=== PATIENT | male | born 1935 | race Caucasian/White ===

== ENCOUNTER 2016-11-20 14:37 | Inpatient (IN) | payer MEDICARE ==
[~2016-11-20] VITALS: Ht 170.2 cm; Wt 55.5 kg
[~2016-11-20 14:37] MED LIST: CALMOSEPTINE OI71 GM TOPICAL; CARAFATE1 G PO; CARAFATE1 G/10 ML PO; COLACE100 MG PO; EMLA CREAM 30 G30 G1 TOPICAL; FLOMAX0.4 MG PO; HYDROCODONE-APA1 TAB PO; LANOXIN125 MCG PO; LOPRESSOR25 MG PO; MED FOR HTN; MIRALAX17 GM PO; PROAIR HFA8.5 GM INH; PROTONIX I40 MG/VIAL PO; PROTONIX40 MG PO; REGLAN INJ10 MG/2 ML PO; REGLAN5 MG PO; ULTRACET TABLET1 TAB PO; ULTRAM50 MG PO; ZOFRAN4 MG PO
[2016-11-20 16:29] LABS: BASOPHILS 0.7 % (0.0-2.0); EOSINOPHILS 4.4 % (0-7); HEMATOCRIT 36.8 % (42.0-54.0); HEMOGLOBIN 11.6 g/dL (13.5-17.5); IMMATURE GRANULOCYTES 0.2 % (0-5); MCH 31.6 pg (26.0-34.0); MCHC 31.5 g/dL (31.0-37.0); MCV 100.3 fL (80.0-100.0); MEAN PLATELET VOLUME 9.3 fL (7.4-10.4); MONOCYTES 8.8 % (2-11); NEUTROPHILS 70.9 % (40-80); PLATELET COUNT 108 10x3/uL (130-400); RBC 3.67 10x6/uL (4.20-6.10); RDW 15.4 % (11.5-14.5); WBC 5.7 10x3/uL (4.8-10.8)
[2016-11-20 17:01] LABS: ALKALINE PHOSPHATASE 130 U/L (46-116); ALT (SGPT) 16 U/L (10-68); CALC OSMOLALITY 284 mosm/kg (275-300); CARBON DIOXIDE 30.3 mmol/L (21.0-32.0); CHLORIDE - SERUM 100 mmol/L (98-107); CREATININE - SERUM 2.8 mg/dL (0.6-1.3); GLUCOSE 99 mg/dL (74-106); POTASSIUM - SERUM 3.4 mmol/L (3.5-5.1); SODIUM 141 mmol/L (136-145); UREA NITROGEN 24 mg/dL (7-18); eGFR NON AFRICAN AMERICAN 23 mL/min (90-120)
[2016-11-20 17:17] LABS: CHOL - HDL RATIO 2.5 ratio (2.3-4.9); CHOLESTEROL, TOTAL 103 mg/dL (0-200); CKMB 6.3 U/L (0.0-3.6); CREATINE KINASE 34 UL (21-232); HDL CHOLESTEROL 42 mg/dL (32-96); LDL CHOLESTEROL 41 mg/dL (0-100); TRIGLYCERIDE 102 mg/dL (30-200); TROPONIN-I 0.042 ng/mL (0.000-0.060)
--- NOTE | 2016-11-20 19:35 | NUR ---
RECEIVED TO ROOM 2101, ALERT AND ORIENTED 80 Y/O MALE SEEN BY DR BHATT WITH DX OF LUNG CONSOLATION, VIA W/C FROM ER. ORIENTATION TO UNIT, ROOM, C/L, TV, PHONE, BATHROOM, URINAL GIVEN WITH UNDERSTANDING VERBALIZED. IV ANTIBIOTIC HUNG VIA PUMP TO LEFT FA IV WITH NO R/S NOTED AT SITE. RT ARM FISTULA WITH + BRUIT AND THRILL NOTED. SANDWICH GIVEN PER REQUEST. TELEMETRY PLACED PER ORDERS. SHOWING 106 UNCAFIB AT THIS TIME. SITTING UP ON SIDE OF BED EATING. VOICES NO C/O PAIN OR DISCOMFORT. C/L IN REACH. CONTINUE TO MONITOR.
[2016-11-20 20:00] VITALS: BP 175/99
[2016-11-20] MEDS ORDERED: TEMAZEPAM30 MG PO (23:50)
[2016-11-21] VITALS (7 sets, daily range): BP systolic 142–193; BP diastolic 63–99; Ht 170.2 cm; Wt 55.5 kg
--- NOTE | 2016-11-21 01:19 | NUR ---
SITTING UP ON SIDE OF BED, STATES, i DONT NEED ANYTHING". TOD BED ALARM ON AND WORKING, NONSKID SOCKS IN PLACE, C/L IN REACH. CONTINUE TO MONITOR,
--- NOTE | 2016-11-21 07:32 | NUR ---
AM ROUNDING DONE, SITTING ON SIDE OF BED LEANING TO RIGHT. STATES THAT HE IS COMFORTABLE THIS WAY. ON 3L PER NC. ON HEART MONITOR SHOWING UCAF, HR 104. SALINE LOCK SEEN TO LEFT ARM, RIGHT AVF. ON TOD ALARM. NON SKID SOCKS SEEN ON FEET. WILL CONTINUE TO MONITOR.
--- NOTE | 2016-11-21 11:55 | NUR ---
BILATERAL SCD'S ON ORDERED.
--- NOTE | 2016-11-21 12:24 | NUR ---
EVENS (SON) TO CALL AND ASK ABOUT HIS FATHER. PER PATIENT OKAY, WAS ABLE TO GIVE HIM INFORMATION.
--- NOTE | 2016-11-21 14:50 | NUR ---
1446-CALL PLACED TO RICHELLE HERNANDEZ TO SEE ABOUT CONTINUING HOME MEDICATIONS. AWAITING CALL BACK.
--- NOTE | 2016-11-21 17:24 | NUR ---
Patient Name: TOMMY SOLIS Admission Status: ER Accout number: [id number] Admission Date: 11-20-2016 : 1935 Admission Diagnosis: Attending: CRISTOPHER Current LOS: 1 Anticipated DC Date: Planned Disposition: Home with Home Health Primary Insurance: [employer] CHOICE PPO MCR ADVANT Discharge Planning Comments: * Is the patient Alert and Oriented? Yes 0 * How many steps to enter\exit or inside your home? 6 0 * PCP DR. GOODSON 0 * Pharmacy [facility] 0 * Preadmission Environment Home with Family 0 * ADLs Independent 0 * Equipment Oxygen Walker 0 * Other Equipment HOME OXYGEN ONLY UNKNOWN MEDICAL EQUIPMENT PROVIDER 0 * List name and contact numbers for known caregivers / representatives who currently or will assist patient after discharge: EVENS SOLIS, SON, 0 * Community resources currently utilized Home Health, OTHER 0 * Please name any agencies selected above. UNKNOWN PROVIDER, PT REPORTS [facility] AT ADMISSION BUT CANNOT REMEMBER THE NAME OF HIS COMPANY 0 OUTPATIENT DIALYSIS, [facility], M//, 1130, DAUGH[employer] IN [employer]. * Additional services required to return to the preadmission environment? No 0 * Can the patient safely return to the preadmission environment? Yes 0 * Has this patient been hospitalized within the prior 30 days at any hospital? No 0 CM MET WITH PT IN ROOM TO DISCUSS DISCHARGE PLANNING AND NEEDS. PT REPORTS LIVING AT HOME INDEPENDENTLY WITH HIS ADULT SON. PT HAS A WALKER AND HOME OXYGEN, PT CANNOT REMEMBER THE NAME OF HIS PROVIDER. PT REPORTS HAVING HOME HEALTH PRIOR TO ADMISSON BUT CANNOT REMEMBER THE NAME OF HIS COMPANY. PT REPORTS GOING TO [facility] ON M// SCHEDULE AT 1130AM, HIS DAUGHTER IN LAW TAKES HIM. CM DISCUSSED AVAILABILITY OF HOME HEALTH, REHAB SERVICES AND MEDICAL EQUIPMENT. PT REPORTS HE WENT TO [facility] FOR REHAB THE LAST TIME HE MET CM FOR REHAB AND IS NOT GOING BACK TO ANY REHAB. PT DENIES NEED OF MEDICAL EQUIPMENT OR REHAB SERVICES, REPORTS PLAN TO GO BACK HOME WITH HIS SON WHO WILL PICK HIM UP AT DISCHARGE. PT WANTS HIS HOME HEALTH RESUMED BUT CANNOT REMEMBER THE NAME OF THE HOME HEALTH COMPANY. CM TO ATTEMPT TO SPEAK TO PT'S FAMILY AND LOCATE PT'S HOME HEALTH COMPANY PRIOR TO DISCHARGE. [employer] Crew Pusher: Sampson Liu
[2016-11-21 17:37] LABS: ALBUMIN 3.1 g/dL (3.4-5.0); BILIRUBIN - DIRECT 0.15 mg/dL (0.00-0.30); BILIRUBIN - INDIRECT 0.16 mg/dL (0.00-1.00); BILIRUBIN - TOTAL 0.31 mg/dL (0.2-1.3); PROTEIN - SERUM 7.1 g/dL (6.4-8.2)
[2016-11-22] VITALS: BP 159/60
--- NOTE | 2016-11-22 03:56 | NUR ---
IN BED WITH EYES CLOSED, RESP UNLAB O2 AT 3L NC IN PLACE, TELEMETRY IN PLACE SHOWING HR UNCAFIB. WHEEZES NOTED TO LEFT SIDE OF CHEST, NOT WEARING SCDS AT THIS TIME. BUT IS WEARING NONSKID SOCKS FOR SAFETY. TOD BED ALARM IS ON AND WORKEING FOR SAFETY. RT AVF WITH + BRUIT AND THRILL NOTED. LEFT FA SL INTACT WITH NO R/S NOTED AT SITE. CONTINUE TO MONITOR.
[2016-11-22 04:00] VITALS: BP 160/84
[2016-11-22 05:36] LABS: BASOPHILS 0.2 % (0.0-2.0); EOSINOPHILS 0.4 % (0-7); IMMATURE GRANULOCYTES 0.2 % (0-5); LYMPHOCYTES 9.6 % (15-50); MCH 31.7 pg (26.0-34.0); MCHC 31.4 g/dL (31.0-37.0); MCV 100.9 fL (80.0-100.0); MEAN PLATELET VOLUME 9.8 fL (7.4-10.4); MONOCYTES 6.2 % (2-11); NEUTROPHILS 83.4 % (40-80); PLATELET COUNT 127 10x3/uL (130-400); RBC 3.47 10x6/uL (4.20-6.10); RDW 15.7 % (11.5-14.5)
[2016-11-22 05:41] LABS: APTT 36.6 SECONDS (22.8-39.4); INR 1.04 (0.85-1.17); PROTIME 13.5 SECONDS (11.6-15.0)
[2016-11-22 05:45] LABS: ANION GAP 13.9 mmol/L (8-16); CALCIUM 8.4 mg/dL (8.5-10.1); CARBON DIOXIDE 28.4 mmol/L (21.0-32.0); POTASSIUM - SERUM 3.3 mmol/L (3.5-5.1)
[2016-11-22 05:55] LABS: D-DIMER-QUANTITATIVE 4.84 ug/mLFEU (0.20-0.54)
--- NOTE | 2016-11-22 06:56 | NUR ---
0650-MADE NPO FOR PROCEDURE TODAY, CALLED AND SPOKE TO EVENS (SON).
[2016-11-22 08:32] VITALS: BP 173/90
[2016-11-22 13:41] VITALS: BP 162/85
--- NOTE | 2016-11-22 16:25 | NUR ---
1600-TO DIALYSIS VIA WHEELCHAIR AND PORTABLE OXYGEN.
[2016-11-22 17:04] VITALS: BP 188/113
--- NOTE | 2016-11-22 17:53 | NUR ---
RETURNS FROM DIALYSIS. WILL MONITOR.
--- NOTE | 2016-11-22 19:34 | NUR ---
Received patient sitting up at edge of bed, slightly SOB, Oxygen on @3L/min, SCDs off at this time, Levaquin infusing in PIV in left forearm, states he had dialysis today, two 2"x2" gauze dressings with paper tape over right arm fistula clean, dry and intact with no drainage, denies pain at this time, alert and oriented x 4, ekg monitor on, rhythm remains Uncontrolled A-Fib. [place] bed alarm on. Still ambivalent regarding having CT biopsy and wants more time before signing consents for anesthesia and procedure.
[2016-11-22 21:17] VITALS: BP 184/90
--- NOTE | 2016-11-22 22:30 | NUR ---
Refusing to rest in bed, insisting on lying perpendicular with his feet up on a chair beside his bed. Argumentative and irritable. Bed alarm is on.
[2016-11-23 01:21] VITALS: BP 136/79
--- NOTE | 2016-11-23 01:30 | NUR ---
Resting quietly in bed with eyes closed, respirations easy and regular, deemed to be sleeping at this time.
--- NOTE | 2016-11-23 03:35 | NUR ---
Patient's bed alarm going off. HEPATOLOGIST found patient at edge of bed, confused, irritated, had pulled out his PIV (had been SL after receiving IVPB antibiotic) and was in process of pulling all his school lunch monitor leads off. Telemetry leads reattached, assisted back into bed. Patient did not remember pulling out PIV. Asked staff why they had pulled out his PIV. Complaining of something being wrong with his brain, "I think those medications that doctor is giving me is making my head funny."
[2016-11-23 04:00] VITALS: BP 184/98
[2016-11-23 06:04] LABS: BASOPHILS 0 % (0.0-2.0); EOSINOPHILS 0 % (0-7); HEMATOCRIT 37.3 % (42.0-54.0); HEMOGLOBIN 11.6 g/dL (13.5-17.5); IMMATURE GRANULOCYTES 0.3 % (0-5); LYMPHOCYTES 3.5 % (15-50); MCH 31.3 pg (26.0-34.0); MCHC 31.1 g/dL (31.0-37.0); MCV 100.5 fL (80.0-100.0); MONOCYTES 2.2 % (2-11); PLATELET COUNT 133 10x3/uL (130-400); RBC 3.71 10x6/uL (4.20-6.10); RDW 15.8 % (11.5-14.5); WBC 10.8 10x3/uL (4.8-10.8)
[2016-11-23 06:21] LABS: ANION GAP 13.4 mmol/L (8-16); CALCIUM 8.8 mg/dL (8.5-10.1); CARBON DIOXIDE 29.6 mmol/L (21.0-32.0); CREATININE - SERUM 3.7 mg/dL (0.6-1.3)
--- NOTE | 2016-11-23 08:00 | NUR ---
0716-PERMITS SIGNED FOR PROCEDURE TODAY. NPO. NO IV ACCESS. JAIRO HYDE RN TO SITE LEFT FA WITH 22G. ON 3L PER NC, WHEEZES HEARD TO RIGHT SIDE. ON HEART MONITOR SHOWING UCAF, HR 111. PATIENT IS SLIGHTLY CONFUSED THIS AM BUT RECONIZES MYSELF AND LOUIE UPTON. HE KNOWS THAT THIS IS NOVEMBER AND 2016. RIGHT ARM IS SWOLLEN FROM DIALYSIS YESTERDAY, RIGHT AVF, + BRUIT AND THRILL. TOD ALARM IS IN USE. WILL CONTINUE TO MONITOR
[2016-11-23 08:45] VITALS: BP 167/102
--- NOTE | 2016-11-23 10:19 | NUR ---
TO IR VIA BED.
--- NOTE | 2016-11-23 10:46 | NUR ---
1045-RETURNS FROM IR WITH DRESSING SEEN TO RIGHT UPPER BACK CHEST, DRY AND INTACT. DENIES PAIN AT PRESENT TIME. WILL CONTINUE TO MONITOR.
[2016-11-23 12:38] VITALS: BP 149/68
[2016-11-23 13:42] LABS: PROTEIN - BODY FLUID 3.1 G/DL
[2016-11-23 14:06] LABS: LYMPH - BF 90 %; MACROPHAGES BF 3 %; NEUT - BF 7 %
[2016-11-23 16:07] VITALS: BP 136/80
[2016-11-23 20:00] VITALS: BP 132/61
[2016-11-24] VITALS: BP 139/77
[2016-11-24 04:00] VITALS: BP 155/78
[2016-11-24 05:42] LABS: BASOPHILS 0 % (0.0-2.0); EOSINOPHILS 0 % (0-7); IMMATURE GRANULOCYTES 0.2 % (0-5); LYMPHOCYTES 2.6 % (15-50); MCH 31.3 pg (26.0-34.0); MCHC 31.4 g/dL (31.0-37.0); MCV 99.4 fL (80.0-100.0); MEAN PLATELET VOLUME 9.8 fL (7.4-10.4); NEUTROPHILS 94.2 % (40-80); PLATELET COUNT 135 10x3/uL (130-400); RBC 3.52 10x6/uL (4.20-6.10); RDW 15.8 % (11.5-14.5); WBC 11.4 10x3/uL (4.8-10.8)
[2016-11-24 05:49] LABS: ANION GAP 14.7 mmol/L (8-16); CALCIUM 8.6 mg/dL (8.5-10.1); CARBON DIOXIDE 26.5 mmol/L (21.0-32.0); CREATININE - SERUM 4.8 mg/dL (0.6-1.3); POTASSIUM - SERUM 4.2 mmol/L (3.5-5.1)
--- NOTE | 2016-11-24 06:44 | NUR ---
PT SLEPT INTERMITTENTLY LAST NIGHT. PT ATE SNACKS 3 DIFFERENT TIMES DURING NIGHT. WILL CONTINUE TO MONITOR.
[2016-11-24 08:56] VITALS: BP 136/75
--- NOTE | 2016-11-24 09:52 | NUR ---
Nutrition follow-up: Diet: mechanical soft with thin liquids PO intake ~50-75% of meals; pt has been NPO for procedure 11/23/16 Labs reviewed Wt: 121# Will continue to encourage increased po intake. RDN following.
[2016-11-24 13:26] VITALS: BP 138/63
--- NOTE | 2016-11-24 13:57 | NUR ---
PT IN BED FROM DIALYSIS. ALERT AND TAlkATIVE.
--- NOTE | 2016-11-24 14:55 | NUR ---
O2 SAT 65% ON 1L O2 PER NC. DR ALICIA NOTIFIED AND NEW ORDERS RECEIVED. PT TALKING TO VISITOR AND NO DISTRESS NOTED.
[2016-11-24 17:41] VITALS: BP 114/65
[2016-11-24 18:09] LABS: ACID FAST SMEAR Negative (()); AFB SPECIMEN PROCESSING Concentration (())
[2016-11-24 20:00] VITALS: BP 131/62
--- NOTE | 2016-11-24 22:09 | NUR ---
PT AWAKE, ALERT, ORIENTED, DENIES ANY NEEDS, TALKING ABOUT HIS NEW DX OF LUNG CANCER. GAVE RX WITH APPLESAUCE R/T PT C/O CAPSULES GETTING STUCK IN THE ROOF OF HIS MOUTH. PT DID WELL WITH THE APPLESAUCE, NO DIFFICULTY. WILL CONTINUE TO MONITOR CLOSELY. BED LOW, CALL LIGHT IN REACH, SIDE RAILS X 2, HOB 20 DEGREES. PT DID GIVE HIMSELF A BED BATH TONIGHT.
[2016-11-25 04:00] VITALS: BP 104/51
[2016-11-25 05:25] LABS: BASOPHILS 0 % (0.0-2.0); EOSINOPHILS 0 % (0-7); HEMATOCRIT 35.7 % (42.0-54.0); IMMATURE GRANULOCYTES 0.1 % (0-5); LYMPHOCYTES 3.1 % (15-50); MCHC 30.8 g/dL (31.0-37.0); MCV 100.6 fL (80.0-100.0); MEAN PLATELET VOLUME 9.6 fL (7.4-10.4); MONOCYTES 2.6 % (2-11); NEUTROPHILS 94.2 % (40-80); PLATELET COUNT 110 10x3/uL (130-400); RBC 3.55 10x6/uL (4.20-6.10); RDW 15.8 % (11.5-14.5)
[2016-11-25 05:26] LABS: WBC 8.4 10x3/uL (4.8-10.8)
[2016-11-25 05:39] LABS: ANION GAP 10.8 mmol/L (8-16); CALCIUM 8.1 mg/dL (8.5-10.1); CARBON DIOXIDE 31.9 mmol/L (21.0-32.0); POTASSIUM - SERUM 4.7 mmol/L (3.5-5.1)
[2016-11-25 05:40] LABS: CREATININE - SERUM 3.2 mg/dL (0.6-1.3)
--- NOTE | 2016-11-25 07:00 | NUR ---
RECEIVED REPORT. ASSUMED CARE OF PATIENT. CALL LIGHT WITHIN REACH. DENIES NEEDS OTHER THAN WANTING TO GET UP AND TAKE A SHOWER. RESP EVEN AND UNLABORED. PATIENT STATES HE IS WAITING FOR THE CANCER DOCTOR TO COME AND SEE HIM. NO DISTRESS.
[2016-11-25 09:04] VITALS: BP 130/67
--- NOTE | 2016-11-25 11:46 | NUR ---
SPOKE TO FOR CLARIFICATION OF WHICH TEST SHE WANTS ORDERED DUE TO PATIENT CANNOT HAVE MRI WITH CONTRAST BUT PER NEPHROLOGY CAN HAVE CT WITH CONTRAST. GAVE ORDERS AT THIS TIME FOR CT OF HEAD WITH CONTRAST, DX LUNG CANCER. ORDER PLACED.
[2016-11-25 12:12] VITALS: BP 112/51
--- NOTE | 2016-11-25 15:46 | NUR ---
ASSISTED PATIENT OOB TO CHAIR AT BEDSIDE. COMPLETE LINEN CHANGE PROVIDED. ASSISTED PATIENT BACK TO BED. CALL LIGHT WITHIN REACH. ALL PERSONAL ITEMS WITHIN REACH. NO DISTRESS. DENIES NEEDS AT THIS TIME.
[2016-11-25 16:25] VITALS: BP 125/62
[2016-11-25 20:19] VITALS: BP 133/67
--- NOTE | 2016-11-26 | NUR ---
OUT IN HALLWAY, HAVE TAKEN OFF TELEMETRY OFF AND IV UN HOOKED. CARRYING BAG FROM ROOM. SAYING THAT HE NEEDS TO BURN THIS BUILDING DOWN FOR 1000.00$. REFUSING TO CALM DOWN. SON "EVENS" CALLED, TALK WITH DAD DID NOT GO WELL, PHONE WAS THROWN DOWN ON DESK. WALKING AWAY FROM DESK AWAY FROM ROOM. TURN AROUND WITH ASSIST OF STAFF, HEADING TO OWN ROOM AND BED. IN BED WITH ASSIST, REFUSING TO WEAR O2 AND TELEMETRY AT THIS TIME. IV RECONNECTED TO PUMP. HOB UP SR UP X2, C/L IN REACH. AWAITING SON"S ARRIVAL.
[2016-11-26 00:37] VITALS: BP 124/63
--- NOTE | 2016-11-26 01:20 | NUR ---
SON AND DAUGHTER IN LAW HERE, ATTEMPTING TO CALM AND REORIENT. CONTINUES TO REFUSE TO WEAR TELEMETRY, O2 @ 3L NC IS IN PLACE AT THIS TIME. CONTINUES TO SAY HE IS GOING TO BURN THIS BUILDING DOWN AND MAKE 1000.00$..THAT HE OWNED IT AND THE PAPERS HAD BEEN SIGNED. CONTINUE TO MONITOR.
[2016-11-26 04:23] VITALS: BP 139/67
[2016-11-26 05:09] LABS: BASOPHILS 0 % (0.0-2.0); EOSINOPHILS 0 % (0-7); HEMATOCRIT 35.2 % (42.0-54.0); IMMATURE GRANULOCYTES 0.2 % (0-5); LYMPHOCYTES 3.4 % (15-50); MCH 31.2 pg (26.0-34.0); MCHC 31.3 g/dL (31.0-37.0); MCV 99.7 fL (80.0-100.0); MEAN PLATELET VOLUME 9.6 fL (7.4-10.4); MONOCYTES 3.6 % (2-11); NEUTROPHILS 92.8 % (40-80); PLATELET COUNT 123 10x3/uL (130-400); RBC 3.53 10x6/uL (4.20-6.10); RDW 15.9 % (11.5-14.5)
[2016-11-26 05:41] LABS: ANION GAP 14.9 mmol/L (8-16); CALCIUM 8.2 mg/dL (8.5-10.1); POTASSIUM - SERUM 4.9 mmol/L (3.5-5.1)
[2016-11-26 05:57] LABS: CREATININE - SERUM 4.2 mg/dL (0.6-1.3)
--- NOTE | 2016-11-26 07:00 | NUR ---
RECEIVED REPORT. ASSUMED CARE OF PATIENT. CALL PATIENT WITH EYES CLOSED, LYING ON RIGHT LATERAL SIDE. RESP EVEN AND UNLABORED. RECEIVED IN REPORT THAT PATIENT WAS UP MOST OF THE NIGHT AND VERY DELUSIONAL. NO ACUTE DISTRESS NOTED. PATIENT IS CURRENTLY NPO FOR CT WITH CONTRAST THIS AM. NO FAMILY AT BEDSIDE AT THIS TIME.
[2016-11-26 09:00] VITALS: BP 148/67
--- NOTE | 2016-11-26 09:26 | NUR ---
RESTING IN BED WITH EYES CLOSED. RESP EVEN AND UNLABORED. AWAITING FOR CT TO RETRIEVE PATIENT FOR SCAN THIS AM.
--- NOTE | 2016-11-26 10:10 | NUR ---
22 GAUGE PLACED TO ANTERIOR UPPER FOREARM X 1 STICK. GOOD BLOOD RETURN, EASY FLUSH. TAPED, DATED AND SECURED. PATTIENT TOLERATED IV PLACEMENT WELL. PATIENT STATES HE PULLED HIS OTHER IV OUT BECAUSE HE DIDN'T THINK THAT WE NEEDED IT. NO IV SITE FOUND DURING AM ASSESSMENT, NO BLEEDING TO SITE THAT IV WAS CURRENTLY STATED TO BE PLACED. NO DISTRESS.
--- NOTE | 2016-11-26 10:30 | NUR ---
PATIENT LEFT UNIT VIA WHEELCHAIR FOR MRI FO LUMBAR SPINE AND WILL RECEIVE CT OF HEAD WHILE DOWNSTAIRS AFTER MRI IS COMPLETED. NO DISTRESS LEAVING UNIT.
--- NOTE | 2016-11-26 10:50 | NUR ---
SPECIALTY MATTRESS DISCUSSED WITH NURSE PRACTITIONER AND AN EGG CRATE WILL BE PLACED ON PATIENT BED. CHARGE NURSE NOTIFIED TRIAGE CLINICIAN OF THE NEED FOR EGG CRATE.
--- NOTE | 2016-11-26 11:45 | NUR ---
PATIENT RETURNED TO ROOM VIA WHEELCHAIR FROM CT SCAN. NO DISTRESS. RESP EVEN AND UNLABORED. PATIENT READY TO CONSUME NOON MEAL. CALL LIGHT PLACED WITHIN REACH. NO DISTRESS.
[2016-11-26 11:50] VITALS: BP 144/79
--- NOTE | 2016-11-26 15:00 | NUR ---
RESTING IN BED WITH EYES CLOSED. RESP EVEN AND UNLABORED. EASILY AROUSED. NO DISTRESS. DENIES NEEDS.
[2016-11-26 16:00] VITALS: BP 128/60
--- NOTE | 2016-11-26 17:45 | NUR ---
GLUING MACHINE OPERATOR MADE AWARE OF WANTING 1ST STEP OVERLAY UNDER PATIENT INSTEAD OF EGG CRATE MATTRESS.
--- NOTE | 2016-11-26 18:06 | NUR ---
SITTING TO SIDE OF BED. MALE VISITOR AT BEDSIDE. NO DISTRESS. CALL LIGHT WITHIN REACH.
--- NOTE | 2016-11-26 19:30 | NUR ---
ASSESSMENT COMPLETE, SEE FLOW SHEET, DENIES NEEDS AT THIS TIME. O2 @ 3L NC IN USE, RT AVF WITH + BRUIT AND THRILL NOTED. LEFT ARM IV WITH NO R/S NOTED AT SITE. WILL BE PLACING HIM ON FIRST STEP MATTRESS PER ORDERS. CONTINUE TO MONITOR.
[2016-11-26 20:00] VITALS: BP 140/63
[2016-11-27] VITALS: BP 144/89
--- NOTE | 2016-11-27 02:43 | NUR ---
ON FIRST STEP MATTRESS. CONFUSION NOTED. ATT EMPT UNSUCCESSFUL TO REORIENT AT THIS TIME, CONTINUING TO MONITOR. C/L IN REACH.
[2016-11-27 04:00] VITALS: BP 125/71
[2016-11-27 05:43] LABS: BASOPHILS 0.1 % (0.0-2.0); EOSINOPHILS 0.1 % (0-7); HEMATOCRIT 34.5 % (42.0-54.0); HEMOGLOBIN 11.4 g/dL (13.5-17.5); IMMATURE GRANULOCYTES 0.3 % (0-5); LYMPHOCYTES 5.4 % (15-50); MCH 32.9 pg (26.0-34.0); MCV 99.4 fL (80.0-100.0); MEAN PLATELET VOLUME 9.8 fL (7.4-10.4); MONOCYTES 7.4 % (2-11); NEUTROPHILS 86.7 % (40-80); PLATELET COUNT 129 10x3/uL (130-400); RBC 3.47 10x6/uL (4.20-6.10); RDW 15.9 % (11.5-14.5); WBC 12.3 10x3/uL (4.8-10.8)
[2016-11-27 06:05] LABS: ANION GAP 13.6 mmol/L (8-16); CALCIUM 8.2 mg/dL (8.5-10.1); CARBON DIOXIDE 27.3 mmol/L (21.0-32.0); CREATININE - SERUM 4.7 mg/dL (0.6-1.3); POTASSIUM - SERUM 4.9 mmol/L (3.5-5.1)
--- NOTE | 2016-11-27 07:56 | NUR ---
0710-AM ROUNDING DONE WITH PATIENT APPEARING TO BE ASLEEP. RESP ARE EVEN AND NON LABORED. ON TOD ALARM. ON 3L PER NC. SALINE LOCK SEEN TO LEFT FA, RIGHT AVF. ON 1ST STEP OVERLAY MATTRESS. WILL COTNINUE TO MONITOR.
[2016-11-27 08:00] VITALS: BP 137/62
--- NOTE | 2016-11-27 10:33 | NUR ---
2 X 2 AND OPSITE SEEN TO RIGHT UPPER POSTERIOR BACK, DRY AND INTACT. 1036-CALLED TO ROOM SON STATES THAT HE THINKS HIS DAD IS CHOKING. PATIENT REPORTS THAT HE "CAN'T BREATH". MOVING AIR AND TALKING TO ME. O2 SAT IS 95 % ON 3L. INCREASED TO 4L. BREAKFAST TRAY TAKEN AWAY. WILL CONTINUE TO MONITOR.
--- NOTE | 2016-11-27 11:19 | NUR ---
1116- PT TAKEN TO DIALYSIS VIA WHEELCHAIR.
[2016-11-27 13:13] LABS: FUNGUS STAIN Final report (())
--- NOTE | 2016-11-27 15:15 | NUR ---
IN AND OUT CATH UA SENT TO LAB ORDERED.
[2016-11-27 15:59] LABS: APPEARANCE SLT CLOUDY (CLEAR); BACTERIA FEW /hpf (NONE SEEN); BILIRUBIN NEGATIVE (NEGATIVE); COLOR DK YELLOW (YELLOW); EPITHELIAL CELLS 0-5 /hpf (0-5); GLUCOSE NEGATIVE (NEGATIVE); KETONE NEGATIVE (NEGATIVE); LEUKOCYTE ESTERASE TRACE (NEGATIVE); NITRITE NEGATIVE (NEGATIVE); PROTEIN 1+ mg/dL (NEGATIVE); RED CELLS - URINE 25-50 /hpf (0-5); SPECIFIC GRAVITY 1.015 (1.005-1.020); UROBILINOGEN NORMAL (NORMAL); WHITE CELLS - URINE 0-5 /hpf (0-5)
[2016-11-27 16:00] VITALS: BP 135/56
[2016-11-27 21:40] VITALS: BP 135/53
--- NOTE | 2016-11-27 22:03 | NUR ---
PT AWAKE, ALERT, ORIENTED, DEMONSTRATING INCREASED SOB NONEXERTIONAL. PT STATES HIS BACK IS HURTING WELL. PT DID TAKE HIS MEDICATIONS WITH APPLESAUCE. PT STATES HE DID NOT TOLERATE DIALYSIS WELL TODAY R/T THE CHAIR HE WAS SITTING IN. PT STATES IT HURT HIS BACK TO THE POINT HE COULD NOT TOLERATE STAYING IN IT. DENIES ANY OTHER NEEDS. CONTINUE TO MONITOR CLOSELY. BED LOW, CALL LIGHT IN REACH, SIDE RAILS X 2, HOB 20 DEGREES.
[2016-11-28 02:00] VITALS: BP 120/66
[2016-11-28 04:21] LABS: BASOPHILS 0 % (0.0-2.0); EOSINOPHILS 1.9 % (0-7); HEMATOCRIT 35.8 % (42.0-54.0); HEMOGLOBIN 10.7 g/dL (13.5-17.5); IMMATURE GRANULOCYTES 0.5 % (0-5); LYMPHOCYTES 11.9 % (15-50); MCH 30.6 pg (26.0-34.0); MCHC 29.9 g/dL (31.0-37.0); MEAN PLATELET VOLUME 9.4 fL (7.4-10.4); MONOCYTES 10.9 % (2-11); NEUTROPHILS 74.8 % (40-80); PLATELET COUNT 134 10x3/uL (130-400)
[2016-11-28 04:47] LABS: ANION GAP 11.5 mmol/L (8-16); CALCIUM 7.9 mg/dL (8.5-10.1); CREATININE - SERUM 4.2 mg/dL (0.6-1.3); POTASSIUM - SERUM 4.5 mmol/L (3.5-5.1)
[2016-11-28 04:49] LABS: MCV 102.3 fL (80.0-100.0); WBC 8.6 10x3/uL (4.8-10.8)
--- NOTE | 2016-11-28 06:41 | NUR ---
PT WAS RESTLESS DURING THE NIGHT, MOST OF IT DURING HIS SLEEP. PT STATES HE IS READY TO , STATING THAT HIS SITUATION IS HOPELESS. PT DENIES DOING ANY SELF HARM, JUST THAT HE DOES NOT SEE HIMSELF IMPROVING WITH HIS HEALTH. DENIES ANY NEEDS. CONTINUE TO MONITOR CLOSELY.
--- NOTE | 2016-11-28 07:49 | NUR ---
0740-AM ROUNDING DONE, SON EVENS AT BEDSIDE STATING THAT HE IS LEAVING FOR [place] AGAIN THIS AM. PATIENT IS ON 3L PER NC, LEFT FA SEEN WTIH SALINE LOCK. RIGHT AVF WITH + BRUIT AND THRILL, RIGHT ARM IS SWOLLEN (ALMOST DOUBLE THAN LEFT). ON 1ST STEP OVERLAY MATTRESS. TRAPEZE BAR SEEN IN USE. TOD ALARM IN USE. WILL CONTINUE TO MONITOR.
[2016-11-28 08:19] VITALS: BP 129/69
--- NOTE | 2016-11-28 08:33 | NUR ---
ASSISTED TO CHAIR WITH TOD ALARM.
[2016-11-28 12:05] VITALS: BP 128/57
--- NOTE | 2016-11-28 14:53 | NUR ---
Nutrition follow-up: Diet: Renal PO intake ~50% of meals - pt with breathing issues Scheduled for kyphoplasty 11/29 +BM Wt: 122# Pt with poor po intake at this time RDN will order nutritional supplement post-surgery to increase kcal/protein intake. RDN following.
[2016-11-28 16:04] VITALS: BP 147/71
--- NOTE | 2016-11-28 17:37 | NUR ---
PATIENT HAS TAKEN O2 OFF AGAIN. REPLACED ON TO HIM. O2 SAT TO 95%. PATIENT IS VERY DEPRESSED AND STATES THAT HE WANTS TO BE WITH HIS (). ENCOURGED HIM TO LEAVE THE O2 ON TO HELP WITH HIS BREATHING. TOLD HIM THAT THE LORD IS NOT READY FOR HIM YET AND ENCOURGED HIM TO LEAVE THE O2 ON. WILL CONTINUE TO MONITOR.
--- NOTE | 2016-11-28 19:20 | NUR ---
ENCORAGED PATIENT TO LEAVE HIS O2 ON SO HE CAN BREATH. TALKED WITH PATIENT AND LISTENED TO HIM REGARDING HIS AND HIS SON (GENE) WHO IS TRAVELING FROM [place]. DENIES ANY NEEDS AT PRESENT TIME. WILL CONTINUE TO MONITOR.
[2016-11-28 20:00] VITALS: BP 158/80
--- NOTE | 2016-11-28 22:30 | NUR ---
RESTING IN BED ON RIGHT SIDE. DENIES ANY PAIN OR NEEDS. SEE ASSESSMENT FLOW SHEET FOR DETAILS. REPOSITIONED IN BED FOR COMFORT.
--- NOTE | 2016-11-28 23:00 | NUR ---
SON, EVENS CALLED TO CHECK ON HIS DAD.
[2016-11-29] VITALS: BP 134/79
[2016-11-29 04:00] VITALS: BP 121/54
[2016-11-29 05:34] LABS: BASOPHILS 0.1 % (0.0-2.0); EOSINOPHILS 0.1 % (0-7); HEMATOCRIT 34.7 % (42.0-54.0); HEMOGLOBIN 10.8 g/dL (13.5-17.5); IMMATURE GRANULOCYTES 0.6 % (0-5); LYMPHOCYTES 4.2 % (15-50); MCH 31.5 pg (26.0-34.0); MCHC 31.1 g/dL (31.0-37.0); MCV 101.2 fL (80.0-100.0); MEAN PLATELET VOLUME 9.8 fL (7.4-10.4); MONOCYTES 6.7 % (2-11); NEUTROPHILS 88.3 % (40-80); PLATELET COUNT 128 10x3/uL (130-400); RBC 3.43 10x6/uL (4.20-6.10); RDW 15.7 % (11.5-14.5); WBC 10.6 10x3/uL (4.8-10.8)
[2016-11-29 05:57] LABS: ANION GAP 14.5 mmol/L (8-16); CALCIUM 7.9 mg/dL (8.5-10.1); CARBON DIOXIDE 29.9 mmol/L (21.0-32.0); CREATININE - SERUM 4.8 mg/dL (0.6-1.3); POTASSIUM - SERUM 5.4 mmol/L (3.5-5.1)
--- NOTE | 2016-11-29 07:20 | NUR ---
PT RESTING COMFORTABLY. NO SS OF DISTRESS AT THIS TIME. WILL CONTINUE TO MONITOR.
--- NOTE | 2016-11-29 07:50 | NUR ---
PATIENT VERY CONFUSED, COMBATIVE. HAS OXYGEN ORDERED AT 4L PER N/C REMOVES PER SELF. VERY [place] OF [place]. WILL NOT KEEP CLOTHES ON OR SELF COVERED WITH A SHEET. N.O. FOR KYPHOPLASTY THIS AM. PATIENT IS ALSO TO GET DIALYSIS TODAY. N.O. FOR ELECTROCARDIOGRAM. PATIENT HAS A TOD ALARM. FIRST STEP MATTERS AND TRAPEZ BAR. CALL LIGHT WITHIN REACH
[2016-11-29 08:21] VITALS: BP 144/73
[2016-11-29 08:26] LABS: APTT 33.6 SECONDS (22.8-39.4); INR 1.01 (0.85-1.17); PROTIME 13.2 SECONDS (11.6-15.0)
--- NOTE | 2016-11-29 08:53 | NUR ---
WHEN MAKING ROUNDS, FOUND PATIENT TRYING TO GET OUT OF BED. PT IS CONFUSED BUT KNOWS HE IS IN THE HOSPITAL AND HIS BIRTHDATE BUT DOES NOT KNOW WAHT YEAR IT IS. RESP SHALLOW AT TIMES, PULSE OX IS 88. DR BHATT HERE AND ORDERS RECEIVED ABOUT DIAYLSIS AND CHEST XRAY. IR NURSE HERE AND KYOPLASTY CANCELLED. MILLER SPOKE WITH CASE MANAGEMENT ABOUT PLANS.
--- NOTE | 2016-11-29 09:15 | NUR ---
DAILYSIS TECH. IN ROOM STARTING DIALYSIS TREATMENT.
--- NOTE | 2016-11-29 09:30 | NUR ---
KYPOPLASTY CANCELED. FADUMO, WORM SORTER TALKED WITH SON ELISABET IN REGARDS TO POSSIBLE HOSPICE. FADUMO STATED THAT SON AND DR ACUNA ARE GOING TO TALK.
--- NOTE | 2016-11-29 12:30 | NUR ---
DIALYSIS TX FINISHED.
[2016-11-29 12:36] VITALS: BP 149/98
[2016-11-29 15:35] VITALS: BP 127/59
--- NOTE | 2016-11-29 15:37 | NUR ---
THIS NURSE WENT INTO ROOM. PATIENT INCONT OF URINE. BED CHANGED AND GIDEON CARE GIVEN. PATIENT IS ALSO CHEWING ON TOBACO
--- NOTE | 2016-11-29 17:33 | NUR ---
PATIENT HELPED WITH SUPPER. FOOD ON DINNER TRAY CUT UP.
[2016-11-29 20:00] VITALS: BP 143/65
--- NOTE | 2016-11-29 20:30 | NUR ---
RESUMED CARE OF PT, IV-LFA-SL, YOVANA-AVF, MON, WED, FRI, ON 1st MATTRESS, BED IS LOW, SRX3, ON TOD BED ALARM, CALL LIGHT IN REACH, WILL CONTINUE TO MONITOR
[2016-11-30] VITALS: BP 131/59
[2016-11-30 05:20] LABS: BASOPHILS 0 % (0.0-2.0); EOSINOPHILS 3.1 % (0-7); HEMATOCRIT 34.3 % (42.0-54.0); HEMOGLOBIN 10.6 g/dL (13.5-17.5); IMMATURE GRANULOCYTES 0.5 % (0-5); LYMPHOCYTES 8.3 % (15-50); MCH 31.3 pg (26.0-34.0); MCHC 30.9 g/dL (31.0-37.0); MCV 101.2 fL (80.0-100.0); MEAN PLATELET VOLUME 9.3 fL (7.4-10.4); MONOCYTES 7.8 % (2-11); NEUTROPHILS 80.3 % (40-80); PLATELET COUNT 138 10x3/uL (130-400); RBC 3.39 10x6/uL (4.20-6.10); RDW 15.9 % (11.5-14.5); WBC 10.2 10x3/uL (4.8-10.8)
[2016-11-30 05:28] LABS: ANION GAP 11.1 mmol/L (8-16); CALCIUM 8.1 mg/dL (8.5-10.1); CARBON DIOXIDE 33.3 mmol/L (21.0-32.0)
[2016-11-30 05:35] LABS: CREATININE - SERUM 3.5 mg/dL (0.6-1.3); POTASSIUM - SERUM 4.4 mmol/L (3.5-5.1)
--- NOTE | 2016-11-30 06:16 | NUR ---
SITTING UP IN BED EATING PINEAPPLE, DENIES ANY NEEDS, CALL LIGHT IN REACH
[2016-11-30 06:28] VITALS: BP 104/58
--- NOTE | 2016-11-30 07:00 | NUR ---
PT WAS RECEIVED IN BED AWAKE AND ORIENTED X 3 AT THE BEGINNING OF THIS SHIFT. NO SIGNS OR VERBAL COMPLAINTS OF DISCOMFORT. CALL LIGHT IS IN HIS REACH. LEFT FOREARM SALINE LOCKED. 4 L OF 02 PER NC GOING. RT. AV FISTULA WRAPPED UP. WILL BE MONITORING PT. THROUGH THIS SHIFT AND ASSISTING PRN WITH ADL'S.
[2016-11-30 08:00] VITALS: BP 132/56
--- NOTE | 2016-11-30 10:14 | NUR ---
Nutrition follow-up: Diet: Renal with Nepro TID PO intake has improved now to 50-75% of meals Labs reviewed Wt: 122# +BM Will continue to provide food choices and honor food preferences within diet restrictions. RDN following.
[2016-11-30 11:46] VITALS: BP 141/64
--- NOTE | 2016-11-30 17:01 | NUR ---
Mr. Quiñonez had hemodialysis today via his right upper arm av fistula. Average blood flow was 400 mls/minute. Net fluid removed was 2100 mls due to pt asking off the machine due to discomfort. Post vital signs were: B/P:123/68, HR:100, Temp:98.6, Resps:16.
--- NOTE | 2016-11-30 17:21 | NUR ---
PT WENT TO DIALYSIS THIS AFTERNOON AND CAME BACK AFTER HAVING 2,780 TAKEN OFF. HE WENT BACK TO BED AND IS RESTING COMFORTABLY. CALL LIGHT IS IN REACH. CONTINUING TO OBSERVE PT.
--- NOTE | 2016-11-30 19:53 | NUR ---
RESUMED CARE OF PT, 024L, IV-LFA-SL, HAS A R.AVF, PT IS DNR, TOD ALARM IS ON, BED IS LOW, SRX2, CALL LIGHT IN REACH, WILL CONTINUE TO MONITOR
[2016-11-30 20:00] VITALS: BP 129/59
--- NOTE | 2016-12-01 02:17 | NUR ---
LYING IN BED, CALL LIGHT IN REACH. WILL CONTINUE WITH PLAN OF CARE.
[2016-12-01 04:00] VITALS: BP 135/66
[2016-12-01 04:49] LABS: BASOPHILS 0 % (0.0-2.0); EOSINOPHILS 0.1 % (0-7); HEMATOCRIT 35.3 % (42.0-54.0); HEMOGLOBIN 11.1 g/dL (13.5-17.5); IMMATURE GRANULOCYTES 0.5 % (0-5); LYMPHOCYTES 4.3 % (15-50); MCH 31.6 pg (26.0-34.0); MCHC 31.4 g/dL (31.0-37.0); MCV 100.6 fL (80.0-100.0); MEAN PLATELET VOLUME 9.9 fL (7.4-10.4); MONOCYTES 5.2 % (2-11); NEUTROPHILS 89.9 % (40-80); PLATELET COUNT 148 10x3/uL (130-400); RBC 3.51 10x6/uL (4.20-6.10); RDW 15.5 % (11.5-14.5)
[2016-12-01 05:13] LABS: ANION GAP 12.2 mmol/L (8-16); CALCIUM 8.1 mg/dL (8.5-10.1); CARBON DIOXIDE 31.6 mmol/L (21.0-32.0); CREATININE - SERUM 3.6 mg/dL (0.6-1.3); POTASSIUM - SERUM 3.8 mmol/L (3.5-5.1)
--- NOTE | 2016-12-01 07:30 | NUR ---
PT IS RESTING IN BED WITH EYES OPEN. ALERT AND ORIENTED X2. CONFUSED TO TIME, BUT REORIENTED EASILY. PT DENIES ANY PAIN OR DISCOMFORT AT THIS TIME. NO SOB NOTED. O2 IS ON @ 4LPM PER NC. SR'S ARE UP X 3 IN BED. CALL LIGHT AND BEDSIDE TABLE ARE WITHIN EASY REACH.
[2016-12-01 09:30] VITALS: BP 109/58
--- NOTE | 2016-12-01 09:47 | NUR ---
RESTS ON 1ST STEP MATRESS. RESP UL ON . CALL LIGHT IN REACH. WILL CONT. PLAN OF CARE.
--- NOTE | 2016-12-01 11:50 | NUR ---
PT IS RESTING IN BED WITH EYES OPEN. ALERT TO SELF AND SURROUNDINGS, BUT CONFUSED TO TIME. REORIENTS EASILY. NO NEEDS VOICED.
[2016-12-01 12:00] VITALS: BP 103/59
--- NOTE | 2016-12-01 14:43 | NUR ---
PT UP IN WC. SON IS PROPELLING HIM IN A WC IN THE HALLWAYS. NO ACUTE DISTRESS NOTED.
--- NOTE | 2016-12-01 17:35 | NUR ---
Patient Name: TOMMY SOLIS Encounter No: [id number] : 1935 Primary Insurance: [employer] CHOICE PPO MCR ADVANT Anticipated DC Date: Planned Disposition: Usp Facility External Planned Provider: [facility], [facility]IC[facility] REHAB BED DCP follow-up note: CM MET WITH PT AND SON, EVENS, IN ROOM TO DISCUSS DISCHARGE PLANNING AND NEEDS. PT AND SON DO NOT WANT HOSPICE CARE AT THIS TIME. EVENS REPORTS THE DOCTOR TOLD HIM THAT PT CANNOT DO CHEMO WHILE ON DIALYSIS. PT AND SON WANT REFERRAL FOR REHAB SENT TO [facility]. CHOICE SIGNED. IMPORTANT MESSAGE FROM MEDICARE PROVIDED AND EXPLAINED. CM FAXED REFERRAL TO [facility], . PT AND SON WANT PT'S BACK FIXED AND REHAB AT [facility]. CM WAITING ADMISSION DETERMINATION FROM [facility]. Sampson Liu, CASE MANAGEMENT
--- NOTE | 2016-12-01 17:35 | NUR ---
PT RESTING IN BED FEEDING SELF SUPPER. REFUSING TO GO TO DIALYSIS UNTIL HIS SUPPER IS FINISHED.
--- NOTE | 2016-12-01 19:20 | NUR ---
RECEIVED REPORT, PT IS DNR, 02-2L, IV-LFA-SL, HAS A R. AVF, ON TOD PAD AND 1sT MATTRESS, BED IS LOW, SRX3, CALL LIGHT IN REACH, WILL CONTINUE TO MONITOR
[2016-12-01 21:18] VITALS: BP 123/56
[2016-12-02 00:23] VITALS: BP 123/56; BP 156/62
[2016-12-02 04:25] VITALS: BP 138/76
[2016-12-02 07:00] VITALS: BP 120/59
--- NOTE | 2016-12-02 07:00 | NUR ---
RECEIVED REPORT. ASSUMED CARE OF PATIENT. FAMILY AT BEDSIDE. PATIENT RESTING WITH EYES CLOSED, LYING ON RIGHT LATERAL SIDE. RESP EVEN AND UNLAOBRED. NO 02 ON AND O2 SAT 95%. 1ST STEP OVERLAY PATENT. TRAPEEZE BAR PATENT. CALL LIGHT WITHIN REACH. EASILY AROUSED. NO DISTRESS. SHOULD RECEIVE DIALYSIS TODAY PATIENT COULD NOT BE ACCESSED LAST NOC.
--- NOTE | 2016-12-02 08:00 | NUR ---
EMMLA CREAM APPLIED TO AV FISTULA SITE IN RIGHT ARM PER DIALYSIS NURSE AT THIS TIME. WILL GO FOR DIALYSIS AT ABOUT 0900
--- NOTE | 2016-12-02 09:10 | NUR ---
LEFT UNIT VIA WHEELCHAIR FOR DIALYSIS DOWNSTAIRS. NO DISTRESS UPON LEAVING UNIT.
--- NOTE | 2016-12-02 13:30 | NUR ---
PATIENT RETURNED TO UNIT FROM DIALYSIS. 100CC PULLED OFF OF PATIENT. NO DISTRESS. CONSUMING NOON MEAL AT THIS TIME.
--- NOTE | 2016-12-02 14:30 | NUR ---
ABY UNIT IN WHEELCHAIR WITH HIS SON. NO DISTRESS UPON LEAVING UNIT.
[2016-12-02 16:00] VITALS: BP 100/53
--- NOTE | 2016-12-02 19:03 | NUR ---
LAYING IN BED, AAOX3, SKIN WARM AND DRY, RESP UNLABORED, IV PATENT TO LEFT FOREARM, O2@2LNC, NO DISTRESS NOTED
[2016-12-02 20:47] VITALS: BP 115/52
--- NOTE | 2016-12-02 23:26 | NUR ---
HOME THEATER EXPERT AT BEDSIDE FOR VS. NEEDS ADDRESSED, CALL LIGHT IN REACH. WILL CONT TO MONITOR.
[2016-12-03 00:24] VITALS: BP 122/58
[2016-12-03 04:39] VITALS: BP 117/52
--- NOTE | 2016-12-03 07:00 | NUR ---
RECEIVED REPORT. ASSUMED CARE OF PATIENT. CALL LIGHT WITHIN REACH. PATIENT RESTING WITH EYES CLOSED, EASILY AROUSED. RESP EVEN AND UNLABORED. STATED HE SLEPT GOOD LAST NIGHT, PERFECT TEMPERATURE AND HE WAS COMFORTABLE. 1ST STEP OVERLAY WITH TRAPEEZE BAR PATENT. NO DISTRESS. DENIES NEEDS AT THIS TIME.
--- NOTE | 2016-12-03 12:49 | NUR ---
CM REASSESSMENT NOTE: CM SENT REFERRAL TO [facility] PER SONS REQUEST. RENAL HAD DISCUSSED HOSPICE WITH SON. CM SPOKE WITH HARRY AT [facility] AND SHE WAS CALLING SON (ELISABET).
[2016-12-03 13:01] VITALS: BP 139/67
--- NOTE | 2016-12-03 15:48 | NUR ---
PATIENT DOES MEET CRITERIA FOR HOME HOSPICE BUT NOT INPATIENT HOSPICE. ONCE PATIENT IS DISCHARGED TO HOME, PLEASE CALL [facility]. PROGRESS NOTES, H&P, LABS GIVEN TO LOUIE KRAUS ONCALL HOSPICE NURSE.
[2016-12-03 16:39] VITALS: BP 92/45
--- NOTE | 2016-12-03 19:59 | NUR ---
PT IN BED WATCHING TV WITH OUT SIGN/SYMPTOMS OF DISTRESS. TALKATIVE AND FRIENDLY. NO REQUEST AT THIS TIME. CALL LIGHT IN REACH.
[2016-12-03 20:00] VITALS: BP 117/61
[2016-12-04 04:00] VITALS: BP 122/53
[2016-12-04 05:02] LABS: ANION GAP 11.8 mmol/L (8-16); CALCIUM 7.6 mg/dL (8.5-10.1); CREATININE - SERUM 4.8 mg/dL (0.6-1.3); POTASSIUM - SERUM 3.8 mmol/L (3.5-5.1)
--- NOTE | 2016-12-04 05:56 | NUR ---
PT IN BED WITH EYES OPEN. NO SIGN/SYPTOMS OF DISTRESS NOTED. COMPLAINS OF BACK PAIN 5/10 WITH PRN TYLENOL GIVEN PER MAR ALONG WITH SCHEDULED MEDICATIONS. NO CONCERNS MADE KNOWN AT THIS TIME. CALL LIGHT IN REACH.
--- NOTE | 2016-12-04 07:32 | NUR ---
RECEIVED REPORT. WILL CONTINUE PLAN OF CARE. NO OTHER NEEDS AT THIS TIME. WILL CONTNUE TO FRIEDA.
[2016-12-04 08:15] VITALS: BP 103/57
--- NOTE | 2016-12-04 11:25 | NUR ---
Patient Name: TOMMY SOLIS Encounter No: [id number] : 1935 Primary Insurance: [employer] P[employer] Anticipated DC Date: 12-04-2016 Planned Disposition: Home with Hospice External Planned Provider: [facility] DCP follow-up note: CM SPOKE TO ABEL GONZALEZ OF [facility] AFTER SHE MET WITH PT AND PT'S SON IN ROOM. ALL ARRANGEMENTS HAVE BEEN COMPLETED FOR PT'S DISCHARGE HOME TODAY. PT'S SON TO TRANSPORT HOME. PT'S SON TO CALL [facility] WHEN THEY ARRIVE HOME WITH PT AND [facility] WILL COME TO HOME AND ADMIT PT FOR HOME HOSPICE. ABEL REPORTS THERE IS NO NEED FOR REPORT NOR TO FAX ANY DISCHARGE INFORMATION PT'S FAMILY WILL BRING DISCHARGE INFORMATION HOME WITH THEM TODAY FOR HOSPICE TO REVIEW. IMPORTANT MESSAGE FROM MED[employer] PROVIDED AND EXPLAINED. NO FURHTER IDENTIFIED DISCHARGE NEEDS. Sampson Liu, CASE MANAGEMENT
[2016-12-04 12:24] VITALS: BP 112/47
--- NOTE | 2016-12-04 12:41 | NUR ---
PT IS ALERT. ASSESSMENT DONE PER FLOWSHEET. NO OTHER NEEDS AT THIS TIME. WILL CONTINUE TO MONITOR.
[2016-12-21 09:18] LABS: FUNGUS MYCOLOGY CULTURE Final report (())
== END 2016-12-04 14:50 | disposition home health service (06) | DRG 180 ==
LOC: D.ER 14:37 → D.M2 17:45
PROVIDERS: Family Medicine; Internal Medicine; Internal Medicine Nephrology; Internal Medicine Pulmonary Disease; Radiology Diagnostic Radiology; Specialist; ADMIT Internal Medicine Nephrology
PROC: 0W993ZZ Drainage of Right Pleural Cavity, Percutaneous Approach (ICD-10-PCS; principal; 2016-11-23 09:28)
PROC: 0BBK3ZX Excision of Right Lung, Percutaneous Approach, Diagnostic (ICD-10-PCS; 2016-11-23 09:28)
DX: C34.90 Malignant neoplasm of unspecified part of unspecified bronchus or lung (principal); N18.6 End stage renal disease; J18.9 Pneumonia, unspecified organism; J44.1 Chronic obstructive pulmonary disease with (acute) exacerbation; I13.2 Hypertensive heart and chronic kidney disease with heart failure and with stage 5 chronic kidney disease, or end stage renal disease; J44.0 Chronic obstructive pulmonary disease with (acute) lower respiratory infection; J98.11 Atelectasis; M48.56XA Collapsed vertebra, not elsewhere classified, lumbar region, initial encounter for fracture; I50.9 Heart failure, unspecified; Z99.2 Dependence on renal dialysis; I48.91 Unspecified atrial fibrillation; D63.1 Anemia in chronic kidney disease; R63.4 Abnormal weight loss; E87.6 Hypokalemia; M81.0 Age-related osteoporosis without current pathological fracture; D69.6 Thrombocytopenia, unspecified; Z87.891 Personal history of nicotine dependence